=== PATIENT | female | born 1995 | race African-American/Black ===

== ENCOUNTER 2019-04-01 23:02 | Observation (INO) | payer SELFPAY ==
[2019-04-02 00:22] LABS: BASOPHILS % 0.2 % (0.0-2.0); EOSINOPHILS % 1.6 % (0.0-5.0); HEMATOCRIT. 27.6 % (36.0-48.0); HEMOGLOBIN. 9.2 g/dL (12.0-16.0); LYMPHOCYTES % 17.6 % (20.0-50.0); MEAN CORPUSCULAR HEMOGLOBIN 30.2 pg (28.0-32.0); MEAN CORPUSCULAR VOLUME 90.4 fL (81.0-99.0); MONOCYTES % 5.3 % (2.0-8.0); NEUTROPHILS % 75.3 % (40.0-76.0); PLATELET 233 x1000/uL (130-400); RED BLOOD CELL COUNT 3.05 mill/uL (4.2-5.4); RED CELL DISTRIBUTION WIDTH 13.3 % (11.6-14.6)
[2019-04-02 00:24] LABS: CHLORIDE 108 mEq/L (98-107)
[2019-04-02 00:32] LABS: CLARITY URINE CLOUDY (CLEAR); COLOR URINE YELLOW (YELLOW); KETONES URINE 1+ (NEGATIVE); LEUKOCYTE ESTERASE URINE NEGATIVE (NEGATIVE); NITRITE URINE NEGATIVE (NEGATIVE); OCCULT BLOOD URINE NEGATIVE (NEGATIVE); PROTEIN URINE NEGATIVE (NEGATIVE); SPECIFIC GRAVITY URINE 1.013 (1.005-1.030); UROBILINOGEN URINE 0.2 E.U./dL (0.2-1.0)
== END 2019-04-02 01:30 | disposition home or self-care (01) ==
LOC: 8 EST LDRP 23:02
PROVIDERS: ADMIT Obstetrics & Gynecology; ATTEND Obstetrics & Gynecology
DX: O26.892 Other specified pregnancy related conditions, second trimester (principal); R10.13 Epigastric pain; Z3A.22 22 weeks gestation of pregnancy
CPT/HCPCS: 36415; 76805; 76818; 80053; 81003; 85025; 99281; G0378

== ENCOUNTER 2019-04-21 20:55 | Observation (INO) | payer OTHER ==
[~2019-04-21] VITALS: Ht 149.9 cm; Wt 90.7 kg
[2019-04-22] MEDS ORDERED: prenatal vitamin (00:14)
== END 2019-04-22 00:25 | disposition home or self-care (01) ==
LOC: 8 EST LDRP 20:55
PROVIDERS: ADMIT Specialist; ATTEND Specialist
DX: O99.612 Diseases of the digestive system complicating pregnancy, second trimester (principal); K80.20 Calculus of gallbladder without cholecystitis without obstruction; Z3A.24 24 weeks gestation of pregnancy
CPT/HCPCS: 76705; 99281; G0378

== ENCOUNTER 2019-04-22 01:25 | Emergency (ER) | payer OTHER ==
[~2019-04-22] VITALS: Ht 149.9 cm; Wt 90.6 kg
[~2019-04-22 01:25] MED LIST: prenatal vitamin
[2019-04-22 02:46] LABS: BASOPHILS % 0.3 % (0.0-2.0); EOSINOPHILS % 1.2 % (0.0-5.0); HEMATOCRIT. 27.6 % (36.0-48.0); HEMOGLOBIN. 9.3 g/dL (12.0-16.0); LYMPHOCYTES % 17.7 % (20.0-50.0); MEAN CORPUSCULAR HEMOGLOBIN 30.2 pg (28.0-32.0); MEAN CORPUSCULAR VOLUME 89.8 fL (81.0-99.0); MEAN PLATELET VOLUME 6.6 fl (7.4-10.4); MONOCYTES % 4.4 % (2.0-8.0); NEUTROPHILS % 76.4 % (40.0-76.0); PLATELET 234 x1000/uL (130-400); RED BLOOD CELL COUNT 3.07 mill/uL (4.2-5.4); RED CELL DISTRIBUTION WIDTH 13.8 % (11.6-14.6)
[2019-04-22 02:53] LABS: CHLORIDE 107 mEq/L (98-107)
[2019-04-22 03:55] LABS: CLARITY URINE CLOUDY (CLEAR); COLOR URINE YELLOW (YELLOW); KETONES URINE TRACE (NEGATIVE); LEUKOCYTE ESTERASE URINE NEGATIVE (NEGATIVE); NITRITE URINE NEGATIVE (NEGATIVE); OCCULT BLOOD URINE NEGATIVE (NEGATIVE); PROTEIN URINE NEGATIVE (NEGATIVE); SPECIFIC GRAVITY URINE 1.016 (1.005-1.030); UROBILINOGEN URINE 0.2 E.U./dL (0.2-1.0)
[2019-04-22 06:20] VITALS: BP 98/55
== END 2019-04-22 06:29 | disposition short-term general hospital (02) ==
LOC: ER 01:25 → CANBEDREQ 05:30 → ER 06:29
DX: K80.20 Calculus of gallbladder without cholecystitis without obstruction (principal); J45.909 Unspecified asthma, uncomplicated; Z88.6 Allergy status to analgesic agent; Z88.5 Allergy status to narcotic agent; Z3A.24 24 weeks gestation of pregnancy
CPT/HCPCS: 36415; 81003; 99285

== ENCOUNTER 2020-08-11 22:18 | Emergency (ER) | payer OTHER ==
[~2020-08-11] VITALS: Ht 152.4 cm; Wt 91.0 kg
[2020-08-12] MEDS ORDERED: ONDANSETRON HCL 4MG/2ML INJ IV STA (00:29)
[2020-08-12] MEDS ORDERED: KETOROLAC 30MG/ML VIAL IV STA (00:29)
[2020-08-12 00:44] VITALS: BP 140/90
[2020-08-12 01:07] LABS: BASOPHILS % 0.5 % (0.0-2.0); EOSINOPHILS % 4.1 % (0.0-5.0); HEMATOCRIT. 37.1 % (36.0-48.0); HEMOGLOBIN. 12.5 g/dL (12.0-16.0); LYMPHOCYTES % 41.7 % (20.0-50.0); MEAN CORPUSCULAR VOLUME 88.9 fL (81.0-99.0); MEAN PLATELET VOLUME 7.5 fl (7.4-10.4); MONOCYTES % 4.9 % (2.0-8.0); NEUTROPHILS % 48.8 % (40.0-76.0); PLATELET 321 x1000/uL (130-400); RED BLOOD CELL COUNT 4.17 mill/uL (4.2-5.4); RED CELL DISTRIBUTION WIDTH 13.7 % (11.6-14.6)
[2020-08-12 01:09] LABS: CLARITY URINE CLOUDY (CLEAR); COLOR URINE YELLOW (YELLOW); KETONES URINE NEGATIVE (NEGATIVE); LEUKOCYTE ESTERASE URINE NEGATIVE (NEGATIVE); NITRITE URINE NEGATIVE (NEGATIVE); OCCULT BLOOD URINE NEGATIVE (NEGATIVE); PH URINE 6.5 (4.5-8.0); PROTEIN URINE NEGATIVE (NEGATIVE); SPECIFIC GRAVITY URINE 1.028 (1.005-1.030); UROBILINOGEN URINE 0.2 E.U./dL (0.2-1.0)
[2020-08-12 01:10] LABS: HCG SCREEN NEGATIVE
[2020-08-12 01:11] LABS: CHLORIDE 110 mEq/L (98-107)
[2020-08-12] MEDS ORDERED: TRAMADOL 50MG TABLET PO ONE (02:45)
== END 2020-08-12 02:55 | disposition home or self-care (01) ==
LOC: ER 22:18
DX: N30.00 Acute cystitis without hematuria (principal); J45.909 Unspecified asthma, uncomplicated; Z88.6 Allergy status to analgesic agent
CPT/HCPCS: 36415; 81025; 93005; 96374; 96375; 99285; J1885; J2405

== ENCOUNTER 2022-11-23 22:21 | Emergency (ER) | payer OTHER ==
[~2022-11-23] VITALS: Ht 149.9 cm; Wt 85.0 kg
[2022-11-23 22:23] VITALS: BP 134/80
[2022-11-23] MEDS ORDERED: KETOROLAC 60MG/2ML VIAL IM STA (23:14)
[2022-11-23 23:47] LABS: BASOPHILS % 0.4 % (0.0-2.0); EOSINOPHILS % 4.3 % (0.0-5.0); HEMATOCRIT. 38.1 % (36.0-48.0); HEMOGLOBIN. 12.8 g/dL (12.0-16.0); LYMPHOCYTES % 36.2 % (20.0-50.0); MEAN CORPUSCULAR VOLUME 89.5 fL (81.0-99.0); NEUTROPHILS % 53.1 % (40.0-76.0); PLATELET 317 x1000/uL (130-400); RED BLOOD CELL COUNT 4.26 mill/uL (4.2-5.4); RED CELL DISTRIBUTION WIDTH 13.4 % (11.6-14.6)
[2022-11-24 00:03] LABS: CHLORIDE 107 mEq/L (98-107)
[2022-11-24 00:13] LABS: HCG SCREEN NEGATIVE
[2022-11-24] MEDS ORDERED: KETOROLAC 60MG/2ML VIAL IM NR (02:00)
[2022-11-24 02:25] LABS: CLARITY URINE CLOUDY (CLEAR); COLOR URINE YELLOW (YELLOW); KETONES URINE TRACE (NEGATIVE); LEUKOCYTE ESTERASE URINE 1+ (NEGATIVE); NITRITE URINE POSITIVE (NEGATIVE); OCCULT BLOOD URINE 3+ (NEGATIVE); PROTEIN URINE 1+ (NEGATIVE); SPECIFIC GRAVITY URINE 1.023 (1.005-1.030)
[2022-11-24] MEDS ORDERED: SULFAMETHOXAZOLE/TRIMETHOPRIM 800/160MG TABLET PO ONE (03:15)
[2022-11-24] MEDS ORDERED: NAPR500T7 MT (03:16)
[2022-11-24] MEDS ORDERED: SULF1TAB48 MT (03:18)
== END 2022-11-24 03:43 | disposition home or self-care (01) ==
LOC: ER 22:21
DX: N39.0 Urinary tract infection, site not specified (principal); J45.909 Unspecified asthma, uncomplicated; Z88.5 Allergy status to narcotic agent; Z88.6 Allergy status to analgesic agent
CPT/HCPCS: 36415; 80053; 81003; 83690; 84703; 85025; 87086; 96372; 99283; J1885; Z7610